=== PATIENT | female | born 1955 | race Caucasian/White ===

== ENCOUNTER 2017-03-24 13:02 | Outpatient (CLI) | payer OTHER ==
--- NOTE | 2017-03-27 10:42 | DIAGNOSTIC IMAGING REPORT ---
PROCEDURE: MG BILATERAL SCREENING W/CAD INDICATION: SCREENING. Personal history of right breast cancer 2007. Maternal aunt with a history of breast cancer. TECHNIQUE: Bilateral CC and MLO digital views. COMPARISON: Mammograms 03/22/2016, 03/02/2015 and 02/10/2014. FINDINGS: Computer-aided detection applied. Mildly dense pattern and right axillary tail surgical changes with volume loss and dystrophic calcifications. No significant interval change. IMPRESSION: 1. Right breast surgical changes without mammographic evidence of malignancy. RESULT CODE: 2- Benign finding(s). A. A negative report should not delay biopsy if a dominant or clinically suspicious mass is present. 10-15% of cancers are not identified by x-ray. B. A negative report may reinforce clinical impression. C. Adenosis and dense breasts may obscure an underlying neoplasm. D. False positive reports average 6-10%. E.. A yearly screening mammogram is recommended. A reminder letter will be scheduled.
== END 2017-03-24 23:00 ==
LOC: MAM SRH 13:02
DX: Z12.31 Encounter for screening mammogram for malignant neoplasm of breast (principal); Z85.3 Personal history of malignant neoplasm of breast; Z80.3 Family history of malignant neoplasm of breast